=== PATIENT | male | born 2000 | race Two or more races ===

== ENCOUNTER 2020-05-13 14:25 | Emergency (ER) | payer SELFPAY ==
[~2020-05-13] VITALS: Ht 182.9 cm; Wt 77.1 kg
[2020-05-13 14:44] VITALS: BP 129/83
== END 2020-05-13 17:01 | disposition home or self-care (01) ==
LOC: ER 14:25
DX: S61.002A Unspecified open wound of left thumb without damage to nail, initial encounter (principal); W22.8XXA Striking against or struck by other objects, initial encounter; Y93.89 Activity, other specified; Y92.89 Other specified places as the place of occurrence of the external cause; Y99.8 Other external cause status